=== PATIENT | male | born 1965 | race Caucasian/White ===

== ENCOUNTER 2022-03-07 11:00 | Emergency (ER) | payer BC, SELFPAY ==
--- NOTE | 2022-03-07 11:09 | ECG_ITS ---
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 Measurements Intervals [place] Rate: 104 P: 39 MT: 146 QRS: 48 QRSD: 102 T: 146 QT: 324 QTc: 427 Interpretive Statements [address]IN[address] T[address] DEVIATION AND MODERATE T-WAVE ABNORMALITY, CONSIDER LATERAL ISCHEMIA [-0.1+ mV T-WAVE IN I/aVL/V5/V6] No previous ECG available for comparison Electronically Signed On 03-07-2022 17:58:49 CDT by Yohana Nieves M.D. [id number]
--- NOTE | 2022-03-07 11:09 | XRR_ITS ---
PROCEDURE INFORMATION: Exam: XR Chest Exam date and time: 03/07/2022 11:38 AM Age: 56 years old Clinical indication: Abnormal findings; Abnormal ekg TECHNIQUE: Imaging protocol: Radiologic exam of the chest. Views: 1 view. COMPARISON: No relevant prior studies available. FINDINGS: Lungs: Unremarkable. No consolidation. Pleural spaces: Unremarkable. No pleural effusion. No pneumothorax. Heart/Mediastinum: Unremarkable. No cardiomegaly. Bones/joints: Metallic orthopedic hardware is seen in the cervical spine XR/XR chest 1V portable [id number] IMPRESSION: 1. No acute findings. 2. Metallic hardware cervical spine
[2022-03-07 11:19] VITALS: BP 109/83; PULSE 107; RESP 18; TEMP 36.4; O2SAT 100; BMI 30.9
--- NOTE | 2022-03-07 11:27 | ED_ITS ---
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
--- NOTE | 2022-03-07 11:41 | W.ED.GENADLT ---
HPI - General Adult General: Chief complaint: Recheck/Abnormal Lab/Rx Stated complaint: Abnormal EKG Time Seen by Provider: 03/07/22 11:09 History of Present Illness: Patient is a 56-year-old male with no known past medical history presents the emergency room with body aches, generalized weakness and concerns for abnormal EKG. For the last 3 days, patient has noted significant diaphoresis and generalized weakness with diffuse body ache. Sunday morning, patient noticed that he had a tick bite on the inner thigh of the right leg. Patient then promptly remove the tick. Patient does not know how long the tick was therefore patient went to see his primary care provider today and had a COVID swab that was negative. Patient was then told to come to the emergency room given findings of T wave version in the lateral leads. On arrival, patient has no complaints of chest pain or shortness of breath or palpitation. Patient denies any diarrhea melena hematochezia. Patient has no complaints of cough, runny nose sore throat. Denies any fever. Or any new rash. 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 Onset:3 days ago Duration:3 days Location:home Severity:moderate Associated symptoms: Reports malaise; Deny chest pain, dyspnea, nausea, palpitations or vomiting Review of Systems Const: Reports: chills, body aches, fatigue, malaise and other (+generalized weakness); Denies: fever(s) Eyes: Denies: change in vision ENMT: Denies: mouth pain Card: Denies: chest pain or palpitations Resp: Denies: dyspnea or non-productive cough GI: Denies: abdominal pain, nausea, vomiting or diarrhea : Denies: dysuria Musc: Denies: extremity pain Skin/Breast: Reports: new lesions (+R inner thigh tick bite with redness) Neuro: Denies: weakness in extremities Psych: Reports: other (Normal mood) Charlie/Lymph: Denies: easy bruising PFS ED PFSH: Medical History (Updated 03/07/22 @ 13:45 by Beth Marx MD) No pertinent past medical history Social History (Updated 03/07/22 @ 11:43 by Beth Marx MD) Smoking and tobacco status: never smoked Alcohol intake: never Substance/Drug Use: never Physical Exam Const: COMMON NORMALS: alert OTHER: +diaphoresis HENMT: COMMON NORMALS: atraumatic HEAD & SCALP: atraumatic MOUTH: moist mucous membranes abnormal Eye: COMMON NORMALS: EOMs intact bilaterally and conjunctivae normal CONJUNCTIVA: Yes conjunctivae normal Neck/C-Spine: COMMON NORMALS: full ROM and supple Resp: COMMON NORMALS: normal respiratory effort and clear to auscultation bilaterally AUSCULTATION: clear to auscultation bilaterally Cardio: RATE: tachycardic GI: COMMON NORMALS: Soft to palpation and non-tender PALPATION: Yes Soft to palpation Extremity: COMMON NORMALS: full ROM OTHER: +clammy extremities Neuro: SENSORIUM/ORIENTATION: Yes alert MOTOR EXAM: No Abnormal motor strength present and Other motor observations present (no focal motor deficits) Psych: COMMON NORMALS: speech normal SPEECH: Yes normal speech MOOD & AFFECT: Yes euthymic mood Skin: NARRATIVE SKIN EXAM: +R inner midthigh circular lacy ring of erythema measuring 1.5cm in diameter Course Vital Signs: Vital signs: Vital Signs Temperature 97.6 F 03/07/22 11:19 Pulse Rate 95 03/07/22 14:05 Respiratory Rate 16 03/07/22 14:05 Blood Pressure 116/81 03/07/22 14:05 Pulse Oximetry 100 03/07/22 14:05 Oxygen Delivery Me thod 03/07/22 14:05 MDM - General Adult Medical Decision Making 56-year-old male without any past medical history presenting to the emergency room with generalized weakness, body aches, diaphoresis and aches for the last 3 days. Patient had negative COVID test earlier today in clinic. On arrival, patient is afebrile, is noted to be diffusely clammy and diaphoretic. EKG was discussed with Dr. Max who does not think this patient meets STEMI criteria. Given the recent tick bite and the constitutional symptoms, this is likely related to a tickborne illness. We will send a tick panel today. Patient received NS and doxycycline in the ER. No signs of Pound spotted fever. White count 7.2 today. Creatinine 1.7 with unclear baseline. Suspect patient may be having dehydration related symptoms. Patient received 2 L of IVF reports feeling symptomatic improved. Patient received 100 mcg IV doxycycline in the ER. Patient has a ringlike pattern on the inner aspect of the right thigh concerning for possible early Lyme disease. Initial troponin elevation I suspect is likely due to creatinine elevation. Repeat troponin of 12. Creatinine appears to be improving. Patient's heart rate improved on reassessment for IVF. Patient has been to tolerate p.o. reports feeling symptomatically improved. Rx doxycycline 100mg BID for tick bite Disposition: Discharge. Patient counseled regarding diagnostic impression, treatment plan. Patient given ED strict return precautions to return for continuation, worsening, or development of new symptoms. Instructed to f/u w/ PCP regarding symptoms today. Patient verbalized understanding. Lab Data : 03/07/22 11:40 03/07/22 13:45 Radiology Impressions Chest X-Ray 03/07/22 11:09 IMPRESSION: 1. No acute findings. 2. Metallic hardware cervical spine Laboratory Results WBC 7.2 10^3/uL (4.0-10.0) 03/07/22 11:40 RBC 5.74 10^6/uL (4.1-5.3) H 03/07/22 11:40 Hgb 14.2 g/dL (11.7-16.6) 03/07/22 11:40 Hct 45.6 % (42.0-52.0) 03/07/22 11:40 MCV 79.4 fl (80-94) L 03/07/22 11:40 MCH 24.7 pg (28.0-34.0) L 03/07/22 11:40 MCHC 31.1 g/dL (30.0-36.0) 03/07/22 11:40 RDW 15.6 % (12.1-15.1) H 03/07/22 11:40 Plt Count 202 10^3/cmm (130-400) 03/07/22 11:40 MPV 10.6 fL (7.4-10.4) H 03/07/22 11:40 Lymph % (Auto) 40.1 % 03/07/22 11:40 Garvin % (Auto) 9.2 % 03/07/22 11:40 Eos % (Auto) 0.3 % 03/07/22 11:40 Baso % (Auto) 1.0 % 03/07/22 11:40 Neut # (Auto) 3.49 10^3/uL (1.8-7.7) 03/07/22 11:40 Lymph # (Auto) 2.9 10^3/uL (0.8-4.8) 03/07/22 11:40 Garvin # (Auto) 0.7 10^3/uL (0.2-0.9) 03/07/22 11:40 Eos # (Auto) 0.0 10^3/uL (0.0-0.8) 03/07/22 11:40 Baso # (Auto) 0.1 10^3/uL (0.0-0.1) 03/07/22 11:40 Nucleated RBC % (auto) 0 % 03/07/22 11:40 Nucleated RBCs # 0.0 /100WBC 03/07/22 11:40 Sodium 136 mmol/L (136-145) 03/07/22 13:45 Potassium 3.1 mmol/L (3.5-5.1) L 03/07/22 13:45 Chloride 100 mmol/L (98-107) 03/07/22 13:45 Carbon Dioxide 24 mmol/L (22-29) 03/07/22 13:45 Anion Gap 15.1 (5-19) 03/07/22 13:45 BUN 16 mg/dL (6-20) 03/07/22 13:45 Creatinine 1.4 mg/dL (0.7-1.2) H 03/07/22 13:45 GFR Calculation 52.1 mL/min (90-130) L 03/07/22 13:45 Glucose 137 mg/dL (65-115) H 03/07/22 13:45 Calculated Osmolality 285 mOsm/kg (285-295) 03/07/22 13:45 Calcium 8.2 mg/dL (8.5-10.5) L 03/07/22 13:45 Magnesium 1.5 mg/dL (1.7-2.3) L 03/07/22 11:40 Troponin T Baseline 18 ng/L (0-15) H 03/07/22 11:40 Troponin T 120 Minute 12.19 ng/L (0-15) 03/07/22 13:45 Delta Troponin T -5.81 ABS# (0-10) L 03/07/22 13:45 Imaging Data Other Imaging: Radiologist's impression: [facility] [address] XRay Report Signed Patient: Ran Jay Unit #: [id number] : 1965 Age/Sex: 56 / M ADM Date: 03/07/22 Loc: ER Room/Bed: Attending Dr: Ordering Provider/Ordering MD: Beth Marx MD Date of Service: 03/07/22 Procedure(s): XR chest 1V portable [id number] Accession Number(s): [id number] Report Number: [id number] PROCEDURE INFORMATION: Exam: XR Chest Exam date and time: 03/07/2022 11:38 AM Age: 56 years old Clinical indication: Abnormal findings; Abnormal ekg TECHNIQUE: Imaging protocol: Radiologic exam of the chest. Views: 1 view. COMPARISON: No relevant prior studies available. FINDINGS: Lungs: Unremarkable. No consolidation. Pleural spaces: Unremarkable. No pleural effusion. No pneumothorax. Heart/Mediastinum: Unremarkable. No cardiomegaly. Bones/joints: Metallic orthopedic hardware is seen in the cervical spine XR/XR chest 1V portable [id number] IMPRESSION: 1. No acute findings. 2. Metallic hardware cervical spine ? Dictated By: Denton Bird Signed By: Denton Bird Signed Date/Time: 03/07/22 1150 DD/ 1138 Discharge Plan Discharge Patient Disposition: Home Clinical Impression: DEL (acute kidney injury), Generalized weakness, Tick bite Condition: Stable Prescriptions: New doxycycline hyclate 100 mg capsule 100 mg PO BID 14 Days Qty: 28 0RF No Action metoprolol succinate 50 mg tablet extended release 24 hr 50 mg PO DAILY lisinopril 20 mg Tablet 20 mg PO DAILY amitriptyline 50 mg Tablet 50 mg PO BEDTIME furosemide 20 mg Tablet 20 mg PO DAILY Admelog U-100 Insulin lispro 100 unit/mL Solution See Rx Instructions .ROUTE .COMPLEX Rx Instructions: 5 unit subcutaneously WITH SLIDING SCALE NOT TO EXCEED 70 UNITS albuterol sulfate 90 mcg/actuation HFA aerosol inhaler 1 inh INHALATION Q4H PRN (Reason: Shortness Of Breath) Humulin 70/30 U-100 KwikPen 100 unit/mL (70-30) Insulin Pen 70 unit SUBCUT BID Trulicity 1.5 mg/0.5 mL pen injector 1.5 mg SUBCUT Q7D Rx Instructions: ON SUNDAY fluticasone propion-salmeterol 113-14 mcg/actuation aerosol powdr breath activated 1 inh INHALATION BID B Complex Tablet Extended Release 1 tab PO DAILY garlic 500 mg Capsule 500 mg PO DAILY Discharge Orders: Discharge ED (Routine); Ordered 03/07/22 Ordered By: Beth Marx Discharge Diet: Advance as tolerated Discharge Activity: Increase activity as tolerated Patient Instructions: Weakness (Generalized) Activity Restrictions/Additional Instructions: Come back if you have any new or concerning issues. Please take your antibiotics as instructed. Watch out for signs of skin changes/redness, mouth redeness or swelling, nausea/vomiting, diarrhea, blood in the urine or any new or concering complaints. Coding Level of Care Code ED Credentialing Assistant for Coltong Fwd Exam Comprehensive
[2022-03-07 11:45] LABS: Basophils # 0.1 10^3/uL (0.0-0.1); Eosinophils % 0.3 %; Hematocrit 45.6 % (42.0-52.0); Hemoglobin 14.2 g/dL (11.7-16.6); Lymphocytes # 2.9 10^3/uL (0.8-4.8); Lymphocytes % 40.1 %; Mean Corpuscular HGB Conc 31.1 g/dL (30.0-36.0); Mean Corpuscular Hemoglobin 24.7 pg (28.0-34.0); Mean Corpuscular Volume 79.4 fl (80-94); Mean Platelet Volume 10.6 fL (7.4-10.4); Monocytes # 0.7 10^3/uL (0.2-0.9); Monocytes % 9.2 %; Neutrophils # 3.49 10^3/uL (1.8-7.7); Nucleated Red Blood Cells % 0 %; Platelet Count 202 10^3/cmm (130-400); Red Blood Count 5.74 10^6/uL (4.1-5.3); Red Cell Distribution Width 15.6 % (12.1-15.1); White Blood Count 7.2 10^3/uL (4.0-10.0)
[2022-03-07] MEDS: doxycycline 100 MG in sodium chloride 0.9% (plus) 100 ML IV (11:55)
[2022-03-07] MEDS: sodium chloride 0.9% 1,000 ML 999 ML IV ×2 (11:56→13:34)
[2022-03-07 12:10] LABS: Troponin(5th) Baseline 18 ng/L (0-15)
[2022-03-07 12:13] LABS: Anion Gap 17.5 (5-19); Blood Urea Nitrogen 16 mg/dL (6-20); Calcium 8.9 mg/dL (8.5-10.5); Carbon Dioxide 26 mmol/L (22-29); Chloride 98 mmol/L (98-107); Glomerular Filtration Rate 41.6 mL/min (90-130); Glucose 114 mg/dL (65-115); Magnesium 1.5 mg/dL (1.7-2.3); Osmolality Calculated 288 mOsm/kg (285-295); Potassium 3.5 mmol/L (3.5-5.1); Sodium 138 mmol/L (136-145)
--- NOTE | 2022-03-07 13:09 | ECG_ITS ---
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 Measurements Intervals [place] Rate: 91 P: 39 WV: 154 QRS: 38 QRSD: 100 T: 180 QT: 351 QTc: 432 Interpretive Statements SINUS RHYTHM ST DEVIATION AND MODERATE T-WAVE ABNORMALITY, CONSIDER LATERAL ISCHEMIA [-0.1+ mV T-WAVE IN I/aVL/V5/V6] ST DEVIATION AND MODERATE T-WAVE ABNORMALITY, CONSIDER INFERIOR ISCHEMIA [-0.1+ mV T-WAVE IN II/aVF] No previous ECG available for comparison Electronically Signed On 03-07-2022 18:19:05 CDT by Yohana Nieves M.D. [id number]
[2022-03-07 14:05] VITALS: BP 116/81; PULSE 95; RESP 16; O2SAT 100
[2022-03-07 14:19] LABS: Troponin 5 2HR 12.19 ng/L (0-15)
[2022-03-07 14:42] LABS: Troponin 5 2HR Delta -5.81 ABS# (0-10)
[2022-03-07 14:54] LABS: Anion Gap 15.1 (5-19); Blood Urea Nitrogen 16 mg/dL (6-20); Calcium 8.2 mg/dL (8.5-10.5); Carbon Dioxide 24 mmol/L (22-29); Chloride 100 mmol/L (98-107); Glomerular Filtration Rate 52.1 mL/min (90-130); Glucose 137 mg/dL (65-115); Osmolality Calculated 285 mOsm/kg (285-295); Potassium 3.1 mmol/L (3.5-5.1); Sodium 136 mmol/L (136-145)
[2022-03-07 15:37] VITALS: BP 134/85; PULSE 98; RESP 16; O2SAT 98
[2022-03-09 15:53] LABS: Lyme AB Screen <0.90 index
[2022-03-11 20:52] LABS: E. Chaffeensis AB IGG <1:64; E. Chaffeensis AB IGM <1:20
[2022-04-03 17:04] LABS: RMSF IGG NOT DETECTED; RMSF IGM NOT DETECTED
== END 2022-03-07 15:38 | disposition home or self-care (01) ==
PROVIDERS: Emergency Provider Emergency Medicine
DX: R53.1 Weakness (principal); N17.9 Acute kidney failure, unspecified; S70.361A Insect bite (nonvenomous), right thigh, initial encounter; W57.XXXA Bitten or stung by nonvenomous insect and other nonvenomous arthropods, initial encounter
CPT/HCPCS: 71045; 80048; 83735; 84484; 85025; 86618; 86666; 86757; 93005; 96361; 96365; 99285; J3490; J7030